=== PATIENT | female | born 1960 | race Caucasian/White ===

== ENCOUNTER 2018-11-14 15:37 | Emergency (ER) | payer SELFPAY ==
[2018-11-14] MEDS ORDERED: Ketorolac Tromethamine 30 MG/ML VIAL ONE (16:20)
--- NOTE | 2018-11-14 16:41 | RAD ---
XR Cerv Sp Ap Lat STANDARD History: Injury. Neck pain Comparison: None. Findings: Mild straightening of the cervical spine likely sequelae of cervical collar. Degenerative d isc space disease, severe, from C4-C7 with circumferential disc osteophyte complexes. No acute fracture or malalignment is appreciated. Radiopaque object seen on the AP radiograph likely extrinsic to the patient. Impression: Severe degenerative changes lower cervical spine.
== END 2018-11-14 17:05 | disposition home or self-care (01) ==
LOC: ERS 15:37
DX: S16.1XXA Strain of muscle, fascia and tendon at neck level, initial encounter (principal); F32.9 Major depressive disorder, single episode, unspecified; F17.210 Nicotine dependence, cigarettes, uncomplicated; V43.62XA Car passenger injured in collision with other type car in traffic accident, initial encounter
CPT/HCPCS: 72040; 96372; J1885

== ENCOUNTER 2019-04-20 13:41 | Outpatient (CLI) | payer SELFPAY ==
--- NOTE | 2019-04-20 14:25 | RAD ---
Exam:3 views right hand HISTORY: Pain. Fibromyalgia. COMPARISON: None FINDINGS: Joint spaces are preserved. No fracture or malalignment. IMPRESSION: Unremarkable 3 views of the right hand
--- NOTE | 2019-04-20 14:25 | RAD ---
Exam:2 views right knee HISTORY: Disability evaluation. Pain. Fibromyalgia. COMPARISON: None FINDINGS: Trace joint effusion. Joint spaces are preserved. No fracture or malalignment. IMPRESSION: Unremarkable 2 views right knee.
== END 2019-04-20 13:42 | disposition home or self-care (01) ==
LOC: RAD 13:41
PROVIDERS: ATTEND Internal Medicine
DX: Z02.71 Encounter for disability determination (principal)